=== PATIENT | female | born 1935 | race Two or more races ===

== ENCOUNTER 2018-02-15 11:32 | Emergency (ER) | payer MEDICARE, MEDICAID ==
[~2018-02-15] VITALS: Ht 154.9 cm; Wt 36.3 kg
[~2018-02-15 11:32] MED LIST: UNOBMED
[2018-02-15 11:34] VITALS: BP 108/55
[2018-02-15 12:00] LABS: APPEARANCE,URINE CLEAR; BILIRUBIN, URINE NEGATIVE (NEGATIVE); COLOR,URINE PALE YELLOW; GLUCOSE, URINE (UA) NEGATIVE (NEGATIVE); KETONES,URINE NEGATIVE (NEGATIVE); LEUKOCYTE ESTERASE ,URINE 1+ (NEGATIVE); NITRITE,URINE NEGATIVE (NEGATIVE); PH,URINE 6.5 (4.5-8.0); PROTEIN,URINE NEGATIVE (NEGATIVE); UROBILINOGEN,URINE NORMAL MG/DL (0.0-1.0)
[2018-02-15 12:01] LABS: BASOPHILS % (AUTO) 3.5 % (0.0-2.0); EOSINOPHILS % (AUTO) 4.6 % (0.0-3.0); HEMATOCRIT 28.8 % (37.0-47.0); HEMOGLOBIN 9.2 G/DL (12.0-16.0); LYMPHOCYTES % (AUTO) 39.7 % (20.0-45.0); MEAN CORPUSCULAR VOLUME 90 FL (80-99); MONOCYTES % (AUTO) 9.4 % (1.0-10.0); NEUTROPHILS % (AUTO) 42.8 % (45.0-75.0); PLATELET COUNT 167 K/UL (150-450); RED BLOOD COUNT 3.22 M/UL (4.20-5.40); RED CELL DISTRIBUTION WIDTH 12.7 % (11.6-14.8)
[2018-02-15 12:05] LABS: INR 1.1 (0.9-1.1)
[2018-02-15 12:24] LABS: ANION GAP 7 mmol/L (5-15); BLOOD UREA NITROGEN 48 mg/dL (7-18); CALCIUM 8.5 MG/DL (8.5-10.1); CARBON DIOXIDE 27 MMOL/L (21-32); CHLORIDE 101 MMOL/L (98-107); CREATININE 1.2 MG/DL (0.55-1.30); POTASSIUM 4.3 MMOL/L (3.5-5.1); SODIUM 135 MMOL/L (136-145)
[2018-02-15] MEDS ORDERED: Morphine Sulfate 2mg/ml Inj(IV/IM USE ONLY) IVP ONE ×2 (12:30→14:00)
[2018-02-15 12:38] LABS: ALBUMIN 2.8 G/DL (3.4-5.0); CKMB 0.5 NG/ML (0.0-3.6)
[2018-02-15] MEDS ORDERED: Sodium Chloride 500ML 500 ML IV ONE (12:45)
--- NOTE | 2018-02-15 13:00 | Diagnostic Imaging Report ---
EXAM: XR Chest, 1 View CLINICAL HISTORY: CP TECHNIQUE: Frontal view of the chest. COMPARISON: Chest x-ray dated 06/09/13 FINDINGS: Lungs: Decreased lung volumes, likely related to shallow inspiration and patient positioning. Prominent perihilar interstitial markings are nonspecific and may be related to chronic senescent changes versus a mild interstitial pneumonitis. The lungs are otherwise clear without focal consolidation. Pleural space: Unremarkable. No obvious pneumothorax. Heart: Partially obscured. Otherwise unremarkable. Mediastinum: A large metallic stent overlies the lower mediastinum. Bones/joints: Degenerative changes are seen throughout the visualized spine. Tubes, lines and devices: A cardiac pacer is seen in the left chest wall, with lead tips in the regions of the right atrium and right ventricle. EKG leads overlie the lower thorax and upper abdomen. Upper abdomen: An IVC filter is identified in the upper abdomen. IMPRESSION: 1. Decreased lung volumes, likely related to shallow inspiration and patient positioning. 2. Prominent perihilar interstitial markings are nonspecific and may be related to chronic senescent changes versus a mild interstitial pneumonitis.
[2018-02-15 13:02] LABS: ALANINE AMINOTRANSFERASE 19 U/L (12-78); ALBUMIN/GLOBULIN RATIO 0.7 (1.0-2.7); ASPARTATE AMINO TRANSFERASE 30 U/L (15-37); BILIRUBIN,TOTAL 0.4 MG/DL (0.2-1.0); CREATINE KINASE 56 U/L (26-308)
[2018-02-15 13:03] LABS: ALKALINE PHOSPHATASE 66 U/L (46-116)
[2018-02-15 13:46] VITALS: BP 156/60
--- NOTE | 2018-02-15 14:14 | Emergency Room Report ---
History of Present Illness General Chief Complaint: Chest Pain Source: EMS Present Illness HPI Patient is an 82-year-old female who presented after worsening chest pain. Patient had prior history of chronic pain. Patient was noted to have prior history of stent placement. The patient reports having some relief with nitroglycerin. The patient noted to be living at home and had prior history of pacemaker placement. Allergies: Coded Allergies: No Known Allergies (Unverified , 06/09/13) Patient History Past Medical History: see triage record Reviewed Nursing Documentation: PMH: Agreed; PSxH: Agreed Nursing Documentation-PMH Past Medical History: No History, Except For Hx Cardiac Problems: Yes - high cholesterol and heart dz Hx Hypertension: Yes Hx Pacemaker: Yes - left side chest Review of Systems All Other Systems: negative except mentioned in HPI Physical Exam Vital Signs Date Time Temp Pulse Resp B/P (MAP) Pulse Ox O2 Delivery O2 Flow Rate FiO2 02/15/18 11:24 98.0 77 18 96/49 100 Room Air 98.1 Sp02 EP Interpretation: reviewed, normal General Appearance: normal inspection, alert, GCS 15, thin, Chronically Ill Head: atraumatic ENT: normal ENT inspection, hearing grossly normal, normal voice Neck: normal inspection, supple, no bony tend, limited range of motion Respiratory: normal inspection, lungs clear, normal breath sounds, no respiratory distress, no retraction, no wheezing Cardiovascular #1: regular rate, rhythm, no edema Gastrointestinal: normal inspection, normal bowel sounds, non tender, soft, no guarding, no hernia Genitourinary: no CVA tenderness Musculoskeletal: decreased range of motion - lower extremity contractures Neurologic: normal inspection, alert, oriented x3, responsive, public works lab[employer] III-XII nml as tested, speech normal, motor weakness Psychiatric: normal inspection, judgement/insight normal, mood/affect normal Skin: normal inspection, normal color, no rash Medical Decision Making Diagnostic Impression: Primary Impression: Chest pain Additional Impressions: Chronic pain CHF (congestive heart failure) ER Course Patient presented for chest pain. Differential diagnosis included but was not limited to acute coronary syndrome, pulmonary embolism, pneumonia, aortic dissection, shingles, pneumothorax, aortic dissection, esophageal rupture, pericarditis. Because of complexity of patient's case laboratory testing and imaging studies were ordered. The chest x-ray one view read by radiology showed decreased lung volumes likely related to a shallow inspiration patient positioning. Prominent hilar interstitial markings which were nonspecific. Laboratory testing was notable for elevated BNP as well as a slightly low white blood count and normal troponin. The patient was initially given IV fluids. She was given IV morphine for pain. Patient was discussed with Dr. Darron Davila [facility] . The patient be transferred [facility] for further management. Labs Test 02/15/18 11:40 02/15/18 11:45 White Blood Count 4.0 K/UL (4.8-10.8) Red Blood Count 3.22 M/UL (4.20-5.40) Hemoglobin 9.2 G/DL (12.0-16.0) Hematocrit 28.8 % (37.0-47.0) Mean Corpuscular Volume 90 FL (80-99) Mean Corpuscular Hemoglobin 28.7 PG (27.0-31.0) Mean Corpuscular Hemoglobin Concent 32.0 G/DL (32.0-36.0) Red Cell Distribution Width 12.7 % (11.6-14.8) Platelet Count 167 K/UL (150-450) Mean Platelet Volume 7.0 FL (6.5-10.1) Neutrophils (%) (Auto) 42.8 % (45.0-75.0) Lymphocytes (%) (Auto) 39.7 % (20.0-45.0) Monocytes (%) (Auto) 9.4 % (1.0-10.0) Eosinophils (%) (Auto) 4.6 % (0.0-3.0) Basophils (%) (Auto) 3.5 % (0.0-2.0) Prothrombin Time 11.5 SEC (9.30-11.50) Prothromb Time International Ratio 1.1 (0.9-1.1) Activated Partial Thromboplast Time 27 SEC (23-33) Sodium Level 135 MMOL/L (136-145) Potassium Level 4.3 MMOL/L (3.5-5.1) Chloride Level 101 MMOL/L (98-107) Carbon Dioxide Level 27 MMOL/L (21-32) Anion Gap 7 mmol/L (5-15) Blood Urea Nitrogen 48 mg/dL (7-18) Creatinine 1.2 MG/DL (0.55-1.30) Estimat Glomerular Filtration Rate mL/min (>60) Glucose Level 100 MG/DL (74-106) Calcium Level 8.5 MG/DL (8.5-10.1) Phosphorus Level 4.0 MG/DL (2.5-4.9) Magnesium Level 1.8 MG/DL (1.8-2.4) Total Bilirubin 0.4 MG/DL (0.2-1.0) Aspartate Amino Transf (AST/SGOT) 30 U/L (15-37) Alanine Aminotransferase (ALT/SGPT) 19 U/L (12-78) Alkaline Phosphatase 66 U/L (46-116) Total Creatine Kinase 56 U/L (26-308) Creatine Kinase MB 0.5 NG/ML (0.0-3.6) Creatine Kinase MB Relative Index 0.8 Troponin I 0.009 ng/mL (0.000-0.056) Pro-B-Type Natriuretic Peptide 2811 pg/mL (0-125) Total Protein 6.8 G/DL (6.4-8.2) Albumin 2.8 G/DL (3.4-5.0) Globulin 4.0 g/dL Albumin/Globulin Ratio 0.7 (1.0-2.7) Lipase 133 U/L (73-393) Urine Color Pale yellow Urine Appearance Clear Urine pH 6.5 (4.5-8.0) Urine Specific [place] 1.010 (1.005-1.035) Urine Protein Negative (NEGATIVE) Urine Glucose (UA) Negative (NEGATIVE) Urine Ketones Negative (NEGATIVE) Urine Occult Blood Negative (NEGATIVE) Urine Nitrite Negative (NEGATIVE) Urine Bilirubin Negative (NEGATIVE) Urine Urobilinogen Normal MG/DL (0.0-1.0) Urine Leukocyte Esterase 1+ (NEGATIVE) Urine RBC 0-2 /HPF (0 - 2) Urine WBC 2-4 /HPF (0 - 2) Urine Squamous Epithelial Cells Few /LPF (NONE/OCC) Urine Bacteria Occasional /HPF (NONE) Lactic Acid Level 0.80 mmol/L (0.4-2.0) EKG Diagnostic Results Rate: other Rhythm: other - paced rhythm ST Segments: no acute changes Last Vital Signs Date Time Temp Pulse Resp B/P (MAP) Pulse Ox O2 Delivery O2 Flow Rate FiO2 02/15/18 14:04 98.1 02/15/18 13:46 66 16 156/60 97 Room Air Status: improved Disposition: XFER SHT-TRM HOSP Condition: Stable Referrals: [facility] (PCP) Alex Gregorio MD Feb 15, 2018 14:14
[2018-02-15] MEDS ORDERED: Nitroglycerin Subl 0.4mg tab SL PRN (14:15)
[2018-02-15 14:24] VITALS: BP 110/56
[2018-02-15 15:17] VITALS: BP 165/78
[2018-02-15 15:20] VITALS: BP 165/78
--- NOTE | 2018-02-16 19:33 | Cardiology Report ---
APPROVED REPORT EKG Measurement Heart [id number] ME 218P1 [id number] Sinus rhythm with 1st degree AV block Left axis deviation Left bundle branch block Abnormal ECG
== END 2018-02-15 15:21 | disposition short-term general hospital (02) ==
LOC: EDBD 11:32 → EMR 11:50
DX: R07.9 Chest pain, unspecified (principal); G89.29 Other chronic pain; I11.0 Hypertensive heart disease with heart failure; I50.9 Heart failure, unspecified; Z95.0 Presence of cardiac pacemaker
CPT/HCPCS: 36415; 71045; 80053; 81003; 82550; 82553; 83605; 83690; 83735; 83880; 84100; 84484; 85025; 85610; 85730; 87040; 93005; 96374; 96376; 99284; J1940; J2270